=== PATIENT | female | born 1945 | race Caucasian/White ===

== ENCOUNTER 2021-10-12 18:37 | Emergency (ER) | payer MEDICARE ==
[2021-10-12 19:49] LABS: HEMOGLOBIN 13.1 gm/dl (12.3-15.3); RED BLOOD COUNT 4.68 M/UL (4.00-5.10); WHITE BLOOD COUNT 7.7 K/UL (4.5-11.0)
[2021-10-13] MEDS ORDERED: DECADRON4 MG PO (00:11)
== END 2021-10-13 06:10 | disposition home or self-care (01) ==
LOC: ER1 18:37
PROVIDERS: Physician Assistant
DX: M25.562 Pain in left knee (principal); Z88.5 Allergy status to narcotic agent; Z88.2 Allergy status to sulfonamides
CPT/HCPCS: 73564; 80048; 85025; 85379; 85652; 85730; 86140; 99283